=== PATIENT | female | born 1955 | race Caucasian/White ===

== ENCOUNTER → 2017-05-04 | Outpatient (CLI) | payer OTHER ==
--- NOTE | ~2017-05-04 | US24 ---
[facility] A Service of [facility] & [facility] RADIOLOGY TEXT RESULTS PATIENT: SAVANNAH GARCES LOCATION: [facility] : 59 UNIT #: [id number] AGE: [address]: KIANA SUMNER APRN SEX: F ORDER DR: [id number] [facility] [address] [place], [place] [address] [id number] O MR#: [id number] Acc #: [id number] NAME: SAVANNAH GARCES : 1955 SEX: F STUDY DATE/TIME: 05/04/2017 13:26 UNIT: [facility] ROOM: STUDY DESCRIPTION: US Breast Unilateral Attending Physician: Kiana Sumner Aprn Referring Physician: Kiana Sumner Aprn Ordering Physician: Kiana Sumner Aprn Primary Care Physician: Kiana Sumner Aprn MEDICAL IMAGING REPORT This report is preliminary unless electronic signature is present EXAM Right breast ultrasound 05/04/2017 INDICATION Patient reports right side breast pain for gao-ri-jzldj months. Patient reports symptoms have improved with antibiotic therapy. Patient also reports intermittent uriux-sc-fvc discharge from the nipple. FINDINGS Sonographic evaluation for the right breast in the subareolar region and in the area of pain from 3 o'clock to 6 o'clock. Ultrasound is normal. No new masses are seen and there are no cysts. In the subareolar region, no dilated ducts are identified and there are no nodules. Findings were discussed with the patient at the time of her examination today. IMPRESSION Negative targeted right breast ultrasound. Continued clinical follow up of breast pain and any nipple discharge recommended. The patient is due for a yearly screening mammogram next month. It is recommended that she keep this appointment. BIRADS: 1 Negative Dictated by... Valente Sharp Jr., M.D. THIS IS AN ELECTRONICALLY VERIFIED REPORT Valente Sharp Jr., M.D. at 05/04/2017 5:01 PM CARMELA/estrella TD: 05/04/2017 15:21 JOB #: [id number] [facility] A Service of [facility] & [facility] RADIOLOGY TEXT RESULTS PATIENT: SAVANNAH GARCES [id number] : 59 UNIT #: [id number] AGE: [address]: KIANA SUMNER APRN SEX: F ORDER DR: MEDICAL IMAGING REPORT Page 1 of 1 COPY
== END | disposition home or self-care (01) ==
LOC: CWCC 12:51
DX: N64.4 Mastodynia (principal)
CPT/HCPCS: 76641